=== PATIENT | female | born 1965 | race Caucasian/White ===

== ENCOUNTER 2020-01-16 15:08 | Emergency (ER) | payer OTHER ==
[~2020-01-16] VITALS: Ht 162.6 cm; Wt 58.0 kg
[2020-01-16 15:10] VITALS: BP 120/66
--- NOTE | 2020-01-16 15:50 | EKG ---
[address] [address] Test Date: 2020-01-16 Test Time: 15:17:20 Pat Name: KERRY RING Department: Room: Gender: F [employer]: JONATHAN : 1965 Requested By: NATALIIA LINDA Order Number: [id number] Reading MD: Measurements Intervals [place] Rate: 55 P: 54 VA: 144 QRS: 75 QRSD: 88 T: 48 QT: 418 QTc: 402 Interpretive Statements SINUS RHYTHM NORMAL ECG RI6.02 No previous ECG available for comparison
--- NOTE | 2020-01-16 16:00 | RAD ---
INDICATION: Reason: chest tightness, PUI / Spl. Instructions: / History: COMPARISON: None. FINDINGS: Single view of chest obtained. Cardiac silhouette is unremarkable. No definite focal airspace consolidation. IMPRESSION: * No focal airspace consolidation. Electronically signed by: Reji Ramos MD (01/16/2020 3:57 PM) [id number]
--- NOTE | 2020-01-16 16:29 | PHYS DOC ---
Past History Past Medical History: Other Additional Past Medical Histor: celiac disease Past Surgical History: Hysterectomy Smoking: Non-smoker Alcohol Use: None Drug Use: None General Adult EDM: Chief Complaint: MULTIPLE COMPLAINTS HPI: HPI: Patient is a 54-year-old female who presents to the emergency department with complaints of chest tightness, fatigue, sore throat, headache, and body aches that began yesterday. Patient denies any fever, cough, shortness of breath, nausea, vomiting, diarrhea, or abdominal pain. She denies any known COVID-19 exposure, however patient states she was out and about in the community recently. She denies any chest pain or palpitations. She currently rates her pain a 5 out of 10 on the pain scale describes it as generalized body aches. She denies any alleviating or exacerbating factors. Review of Systems: Review of Systems: Complete ROS is negative unless otherwise noted in HPI. Allergies: Allergies: Allergies Coded Allergies Type Severity Reaction Last Updated Verified Sulfa (Sulfonamide Antibiotics) Allergy Unknown 01/16/20 Yes gluten Allergy Unknown 01/16/20 Yes Physical Exam: PE: See Above Constitutional: Well developed, well nourished, no acute distress, non-toxic appearance. [] HENT: Normocephalic, atraumatic, bilateral external ears normal, nose normal. [] Eyes: PERRLA, EOMI, conjunctiva normal, no discharge. [] Neck: Normal range of motion, no stridor. [] Cardiovascular:Heart rate regular rhythm Lungs & Thorax: Respirations even and unlabored, no retractions, no respiratory distress, speaking full sentences Skin: Warm, dry, no erythema, no rash. [] Extremities: No cyanosis, ROM intact, no edema. [] Neurologic: Alert and oriented X 3, no focal deficits noted. [] Psychologic: Affect normal, judgement normal, mood normal. [] Current Patient Data: Vital Signs: Vital Signs Date Time Temp Pulse Resp B/P (MAP) Pulse Ox O2 Delivery O2 Flow Rate FiO2 01/16/20 15:08 98.3 56 16 120/66 (84) 99 Room Air EKG: EK-sinus bradycardia, rate of 55, otherwise normal ECG, no STEMI, read by Dr. Chatterjee Radiology/Procedures: Radiology/Procedures: PROCEDURE: CHEST AP ONLY INDICATION: Reason: chest tightness, PUI / Spl. Instructions: / History: COMPARISON: None. FINDINGS: Single view of chest obtained. Cardiac silhouette is unremarkable. No definite focal airspace consolidation. IMPRESSION: * No focal airspace consolidation. [] Heart Score: Risk Factors: Risk Factors: DM, Current or recent (<one month) smoker, HTN, HLP, family history of CAD, obesity. Risk Scores: Score 0 - 3: 2.5% MACE over next 6 weeks - Discharge Home Score 4 - 6: 20.3% MACE over next 6 weeks - Admit for Clinical Observation Score 7 - 10: 72.7% MACE over next 6 weeks - Early Invasive Strategies Course & Med Decision Making: Course & Med Decision Making Pertinent Labs and Imaging studies reviewed. (See chart for details) 54-year-old female presents emergency department with complaints of chest tightness, body aches, sore throat, fatigue, and a dull headache. Rapid flu test is negative. COVID-19 test is pending. Patient was afebrile in the emergency department. Vital signs are stable. Chest x-ray was unremarkable. I advised patient of the likely diagnosis of COVID-19 and provided her with quarantine instructions. Encouraged patient to drink clear fluids, eat healthy, and take a multivitamin daily. Instructed her to return to the ER if she develops a fever that does not respond to antipyretics or her shortness of breath becomes worse. Patient verbalized an understanding of home care, medications, follow-up, and return to ED instructions and was in agreement with the plan of care. [] [place] Disclaimer: Zeny Disclaimer: This electronic medical record was generated, in whole or in part, using a voice recognition dictation system. Departure Departure: Impression: Primary Impression: Person under investigation for COVID-19 Disposition: 01 DC HOME SELF CARE/HOMELESS Condition: STABLE Referrals: PCP,UNKNOWN (PCP) Patient Instructions: Upper Respiratory Infection, Adult, [id number] Additional Instructions: Your flu test today is negative. Your Covid 19 test is pending. Please follow the following quarantine instructions: You have been tested for or diagnosed with COVID-19. It is an infection caused by a new type of coronavirus. COVID-19 will cause cold-like or mild flu symptoms in most. It can cause more severe symptoms like problems breathing in some. There is no treatment for COVID-19. The body will clear the infection over time. Self-care will help to ease discomfort. Steps to Take: Self-Care Rest as needed. Healthy habits may help you feel better. Steps include: Choose healthy foods including fruits and vegetables. Drink water throughout the day. Get plenty of sleep each night. If you smoke, try to quit. It may ease breathing. Avoid alcohol. Keep Others Healthy The virus can spread to others. Droplets are released every time you sneeze or cough. The droplets can get into the mouth, nose, or eyes of people near you and lead to infection. To lower the chances of spreading COVID-19 to others: Stay at home until your doctor has said it is safe to leave. If you tested positive this will mean staying isolated until both of the following are true: At least 7 days have passed since the start of illness. You are free of fever for at least 72 hours without the use of medicine. During this time: - Avoid public areas, events, or transportation. Do not return to work or school until your doctor has said it is safe to do so. - Call ahead if you need to go to a medical center. Let them know you may have COVID-19. It will help them guide you where to go. They may also ask you to wear a facemask when you come to the office. - If you call for emergency medical services, let them know you may have COVID- 19. While at home: - Try to avoid close contact with others. Stay about 6 feet away. - If possible, spend most of your time in a separate room from others. - Use a face mask if you will be in close contact with others such as sharing a room or vehicle. - Have someone wipe down common surfaces in the home. Use household chiropractic practice manager every day on areas like doorknobs, counters, or sinks. - Cough or sneeze into a tissue. Throw the tissue away right after use. If a tissue is not available, cough or sneeze into your elbow. - Wash your hands often. Wash them after sneezing or coughing. Use soap and water and wash for at least 20 seconds. Alcohol based hand ribbon cleaner can be used if soap and water is not available. - Do not prepare food for others. Avoid sharing personal items like forks, spoons, or toothbrushes. - Avoid close contact with pets while you are sick. There is no evidence of the virus passing to pets. This is a safety step until more is known about this virus. Isolation can be frustrating. Social interaction can help. Keep in touch with friends and family through phone and tech options. You can still interact with others in your home, just keep a safe distance of about 6 feet. Follow-up: Your doctors office will check in with you to see if there are any changes in your health. You may be asked to keep track of symptoms to share with them. They will also let you know when you are clear to be in public again. Problems to Look Out For: Contact your doctor if your recovery is not going as you expect. Get emergency care if you have problems such as: - Trouble breathing - Nonstop chest pain or pressure - Changes in awareness, confusion, or problems waking - Lips or face have bluish color - Worsening of symptoms If you think you have an emergency, call for emergency medical services right away. As taken from [facility] NATALIIA LINDA APRN Jan 16, 2020 16:29
[2020-01-16 17:22] LABS: INFLUENZA A PATIENT NEGATIVE (NEGATIVE); INFLUENZA B PATIENT NEGATIVE (NEGATIVE)
== END 2020-01-16 17:55 | disposition home or self-care (01) ==
LOC: ER 15:08
DX: R07.89 Other chest pain (principal); J02.9 Acute pharyngitis, unspecified; R51.9 Headache, unspecified; Z20.828 Contact with and (suspected) exposure to other viral communicable diseases; Z88.2 Allergy status to sulfonamides; Z88.8 Allergy status to other drugs, medicaments and biological substances
CPT/HCPCS: 71045; 87804; 93005; 99285; C9803; U0003

== ENCOUNTER 2020-11-01 10:17 | Emergency (ER) | payer OTHER ==
[~2020-11-01] VITALS: Ht 167.6 cm; Wt 61.0 kg
[2020-11-01] MEDS ORDERED: ONDANSETRON PF 4 MG/2 ML VIAL. IVP ONE (10:45)
[2020-11-01] MEDS ORDERED: IV NORMAL SALINE 1,000ML 1,000 ML IV ONE (10:45)
[2020-11-01] MEDS ORDERED: IOHEXOL 300 MG/ML 75 ML VIAL. IV ONE (10:45)
--- NOTE | 2020-11-01 10:45 | PHYS DOC ---
Past History Past Medical History: Other Additional Past Medical Histor: celiac disease Past Surgical History: , Hysterectomy, Other Additional Past Surgical Histo: back surgery x 3 Smoking: Non-smoker Alcohol Use: None Drug Use: None General Adult EDM: Chief Complaint: ABDOMINAL PAIN HPI: HPI: Patient is a 54-year-old female being seen in the ER for left lower quadrant pain that radiates to her left flank. She rates pain 5 out of 10. She has been taking Motrin at home without relief. She is also reporting nausea, dysuria and a strong odor to her urine. She denies any vomiting, diarrhea, fevers, blood in her stools, blood in her urine, alcohol use. Patient has a history of diverticulitis and states that this feels similar. Patient has a history of hysterectomy. Patient is in no acute distress and her vital signs are stable. Review of Systems: Review of Systems: 14 body systems of the review of systems have been reviewed. See HPI for pertinent positive and negative responses, otherwise all other systems are negative, nonpertinent or noncontributory Allergies: Allergies: Allergies Coded Allergies Type Severity Reaction Last Updated Verified Sulfa (Sulfonamide Antibiotics) Allergy Unknown 11/01/20 Yes gluten Allergy Unknown 11/01/20 Yes Physical Exam: PE: Constitutional: Well developed, well nourished, no acute distress, non-toxic appearance. [] HENT: Normocephalic, atraumatic, bilateral external ears normal, oropharynx moist, no oral exudates, nose normal. [] Eyes: PERRL, EOMI, conjunctiva normal, no discharge. [] Neck: Normal range of motion, no stridor Cardiovascular:Heart rate regular rhythm, no murmur [] Lungs & Thorax: Bilateral breath sounds clear to auscultation [] Abdomen: Bowel sounds normal, soft, left lower quadrant pain with palpation, no rebound tenderness, no masses, no pulsatile masses, negative Duckworth sign, negative Rovsing sign. [] Skin: Warm, dry, no erythema, no rash. [] Back: No tenderness, no CVA tenderness. [] Extremities: No tenderness, no cyanosis, no clubbing, ROM intact, no edema. [] Neurologic: Alert and oriented X 3, normal motor function, normal sensory function, no focal deficits noted. [] Psychologic: Affect normal, judgement normal, mood normal. [] Current Patient Data: Labs: Laboratory Tests Test 11/01/20 10:50 11/01/20 10:58 Urine Collection Type Unknown Urine Color Yellow Urine Clarity Hazy Urine pH 6.5 Urine Specific [place] 1.015 Urine Protein Neg Urine Glucose (UA) Neg mg/dL Urine Ketones (Stick) Neg mg/dL Urine Blood Neg Urine Nitrite Neg Urine Bilirubin Neg Urine Urobilinogen Dipstick 0.2 mg/dL Urine Leukocyte Esterase Small Urine RBC 1-2 /HPF Urine WBC 20-40 /HPF Urine Squamous Epithelial Cells Many /LPF Urine Bacteria Mod /HPF White Blood Count 6.1 x10^3/uL Red Blood Count 4.78 x10^6/uL Hemoglobin 14.5 g/dL Hematocrit 43.8 % Mean Corpuscular Volume 92 fL Mean Corpuscular Hemoglobin 30 pg Mean Corpuscular Hemoglobin Concent 33 g/dL Red Cell Distribution Width 12.7 % Platelet Count 224 x10^3/uL Neutrophils (%) (Auto) 60 % Lymphocytes (%) (Auto) 31 % Monocytes (%) (Auto) 7 % Eosinophils (%) (Auto) 2 % Basophils (%) (Auto) 1 % Neutrophils # (Auto) 3.7 x10^3uL Lymphocytes # (Auto) 1.9 x10^3/uL Monocytes # (Auto) 0.4 x10^3/uL Eosinophils # (Auto) 0.1 x10^3/uL Basophils # (Auto) 0.0 x10^3/uL Sodium Level 142 mmol/L Potassium Level 4.0 mmol/L Chloride Level 103 mmol/L Carbon Dioxide Level 34 mmol/L Anion Gap 5 Blood Urea Nitrogen 16 mg/dL Creatinine 0.7 mg/dL Estimated GFR (Cockcroft-Gault) 87.5 BUN/Creatinine Ratio 23 Glucose Level 72 mg/dL Calcium Level 9.4 mg/dL Total Bilirubin 0.4 mg/dL Aspartate Amino Transf (AST/SGOT) 24 U/L Alanine Aminotransferase (ALT/SGPT) 31 U/L Alkaline Phosphatase 78 U/L Total Protein 7.1 g/dL Albumin 3.8 g/dL Albumin/Globulin Ratio 1.2 Lipase 110 U/L Current Medications Medications (Trade) Dose Ordered Sig/Jensen Route PRN Reason Start Time Stop Time Status Last Admin Dose Admin Sodium Chloride 1,000 ml @ 1,000 mls/hr 1X ONCE IV 11/01/20 10:45 11/01/20 11:44 DC 11/01/20 10:58 Ondansetron HCl (Zofran) 4 mg 1X ONCE IVP 11/01/20 10:45 11/01/20 10:46 DC 11/01/20 10:59 Iohexol (Omnipaque 300 Mg/ml) 75 ml 1X ONCE IV 11/01/20 10:45 11/01/20 10:46 DC 11/01/20 11:04 Info (Do NOT chart on this entry -- for MONITORING) 1 each PRN DAILY PRN MC SEE COMMENTS 11/01/20 11:00 11/03/20 10:59 Vital Signs: Vital Signs Date Time Temp Pulse Resp B/P (MAP) Pulse Ox O2 Delivery O2 Flow Rate FiO2 11/01/20 10:34 97.8 63 18 104/54 (71) 98 Room Air EKG: EKG: [] Radiology/Procedures: Radiology/Procedures: PROCEDURE: CT ABD PELV W/ IV CONTRST ONLY EXAMINATION: CT abdomen and pelvis with IV contrast. INDICATION:54 years, Female, left lower quadrant abdominal pain.. TECHNIQUE: Axial CT images of the abdomen and pelvis were obtained. Coronal and sagittal reformatted performed. COMPARISON: None. Exposure: One or more of the following individualized dose reduction techniques were utilized for this examination: 1. Automated exposure control 2. Adjustment of the mA and/or kV according to patient size 3. Use of iterative reconstruction technique. FINDINGS: LOWER CHEST: Subsegmental atelectasis versus scarring in the lingula. ABDOMEN/PELVIS: Normal size and morphology of the liver with homogeneous enhancement. Subcentimeter hypodensity in the posterior right hepatic lobe, too small to characterize, statistically favors benign etiology such as cyst. Cholecystectomy. Central intra and extrahepatic biliary ductal dilation with smooth tapering distally, likely secondary to postcholecystectomy status. Unremarkable spleen and pancreas. No adrenal nodule. Normal symmetric enhancement of the kidneys with no hydronephrosis. Subcentimeter hypodensity in the interpolar right kidney, too small to characterize. Bowel obstruction or wall thickening. Sigmoid diverticulosis without diverticulitis. Normal appendix. Normal caliber abdominal aorta. Mesenteric arteries and portal vein are patent. No ascites or pneumoperitoneum. No lymphadenopathy in the abdomen or pelvis by size criteria. Diffuse urinary bladder wall thickening, may relate to underdistention. Uterus is not visualized. No suspicious pelvic masses. 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 MUSCULOSKELETAL: Anterior hardware fusion L4, L5 and S1. Disc spacer at the L4-5 and L5-S1. Surgical clips in the left lower quadrant. IMPRESSION: 1. No acute abnormality in the abdomen or pelvis. 2. Sigmoid diverticulosis without acute diverticulitis 3. 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 4. Mild urinary bladder wall thickening, may relate to underdistended lumen. Consider correlation with urinalysis. Electronically signed by: Shelley Manzano MD (11/01/2020 11:32 AM) [id number] DICTATED AND SIGNED BY: SHELLEY MANZANO MD DATE: 11/01/20 1119 CC: NETTIE LITTLE MD; NICOLE JIN APRN; PCP,UNKNOWN ~MTH0 0 [] Heart Score: C/O Chest Pain: No Risk Factors: Risk Factors: DM, Current or recent (<one month) smoker, HTN, HLP, family history of CAD, obesity. Risk Scores: Score 0 - 3: 2.5% MACE over next 6 weeks - Discharge Home Score 4 - 6: 20.3% MACE over next 6 weeks - Admit for Clinical Observation Score 7 - 10: 72.7% MACE over next 6 weeks - Early Invasive Strategies Course & Med Decision Making: Course & Med Decision Making Pertinent Labs and Imaging studies reviewed. (See chart for details) [] Patient is a 54-year-old female being seen in the ER for left lower quadrant pain that radiates to her left flank with nausea, dysuria and a strong odor to her urine. Patient has a history of diverticulitis. Work-up in the ER consisted of blood work, urinalysis, CT imaging of abdomen and pelvis. Patient treated with IV fluids and nausea medication. CT scan of abdomen and pelvis showed diverticulosis without diverticulitis and bladder thickening consistent with acute cystitis. CBC and CMP unremarkable. UA was positive for urinary tract infection. Patient will be discharged home with an antibiotic and Pyridium. Patient advised to follow-up with her primary care provider. I discussed with patient all findings and diagnostic testing as well as the need to follow-up with PCP for further evaluation and treatment or return to the ER if any new or worsening symptoms. Strict return precautions were also discussed at length. Patient voiced understanding and agreement with the plan. Patient is hemodynamically stable at the time of disposition. pt requesting diflucan for preventative yeast infection due to abx. Zeny Disclaimer: Zeny Disclaimer: This electronic medical record was generated, in whole or in part, using a voice recognition dictation system. Departure Departure: Impression: Primary Impression: Acute cystitis Qualified Codes: N30.00 - Acute cystitis without hematuria Additional Impression: Diverticulosis Disposition: HOME / SELF CARE / HOMELESS Condition: GOOD Referrals: PCP,UNKNOWN (PCP) Patient Instructions: Diverticulosis, Urinary Tract Infection Additional Instructions: You were seen in the ER today for left lower quadrant pain and back pain. CT scan of your abdomen and pelvis showed diverticulosis but no diverticulitis, it also showed bladder wall thickening consistent with cystitis. Please see attached information on diverticulosis. Avoid eating foods that may contribute to diverticulosis like seeds, nuts. Your urinalysis was positive for urinary tract infection. You will be discharged home with an antibiotic and Pyridium. Please take the antibiotic as directed. Pyridium will help you with your bladder spasming pains. Follow-up with your primary care provider regarding your ER visit on Wednesday. Increase your fluids. Avoid bladder irritants like caffeine, alcohol or sugary beverages. If you develop worsening of your pain, intractable nausea or vomiting, high fevers refractory to treatment, blood in your stools or vomit please return to the ER. EMERGENCY DEPARTMENT GENERAL DISCHARGE INSTRUCTIONS Thank you for coming to [facility] (ED) today and trusting us with you care. We trust that you had a positivie experience in our Emergency Department. If you wish to speak to the department management, you may call the director at [phone]. YOUR FOLLOW UP INSTRUCTIONS ARE FOLLOWS: 1. Do you have a private Doctor? If you do not have a private doctor, please ask for a resource list of physicians or clinics that may be able to assist you with follow up care. 2. The Emergency Physician has interpreted your x-rays. The X-Ray specialist will also review them. If there is a change in the findings, you will be notified in 48 hours when at all possible. 3. A lab test or culture has been done, your results will be reviewed and you will be notified if you need a change in treatment. ADDITIONAL INSTRUCTIONS AND INFORMATION: 1. Your care today has been supervised by a physician who is specially trained in emergency care. Many problems require more than one evaluation for a complete diagnosis and treatment. We recommend that you schedule your follow up appointment as recommended to ensure complete treatment of you illness or injury. If you are unable to obtain follow up care and continue to have a problem, or if your condition worsens, we recommend that you return to the ED. 2. We are not able to safely determine your condition over the phone nor are we able to give sound medical advice over the phone. For these safety reasons, if you call for medical advice we will ask you to come to the ED for further evaluation. 3. If you have any questions regarding these discharge instructions please call the ED at [phone]. SAFETY INFORMATION: In the interest of safety, wellness, and injury prevention; we encourage you to wear your sealbelt, if you smoke; quite smoking, and we encourage family to use a protective helmet for bicycling and other sporting events that present an increased risk for head injury. IF YOUR SYMPTOMS WORSEN OR NEW SYMPTOMS DEVELOP, OR YOU HAVE CONCERNS ABOUT YOUR CONDITION; OR IF YOUR CONDITION WORSENS WHILE YOU ARE WAITING FOR YOUR FOLLOW UP APPOINTMENT; EITHER CONTACT YOUR PRIMARY CARE DOCTOR, THE PHYSICIAN WHOSE NAME AND NUMBER YOU WERE GIVEN, OR RETURN TO THE ED IMMEDIATELY. Scripts Fluconazole (DIFLUCAN) 150 Mg Tablet 1 TAB PO ONCE for yeast infection for 1 Day, #1 TAB 0 Refills Prov: NICOLE JIN APRN 11/01/20 Phenazopyridine Hcl (PYRIDIUM) 200 Mg Tablet 1 TAB PO TID for urinary discomfort for 3 Days, #9 TAB 0 Refills Prov: NICOLE JIN APRN 11/01/20 Cephalexin (CEPHALEXIN) 500 Mg Tablet 1 TAB PO BID for UTI for 7 Days, #14 TAB 0 Refills Prov: NICOLE JIN APRN 11/01/20 NICOLE JIN APRN Nov 01, 2020 10:45
[2020-11-01] MEDS ORDERED: CONTRAST GIVEN. MC PRN (11:00)
[2020-11-01 11:21] LABS: BASO % 1 % (0-3); EOS # 0.1 x10^3/uL (0.0-0.7); EOS % 2 % (0-3); HEMATOCRIT 43.8 % (36.0-47.0); HEMOGLOBIN 14.5 g/dL (12.0-15.5); LYMPH # 1.9 x10^3/uL (1.0-4.8); LYMPH % 31 % (24-48); MEAN CORPUSCULAR HEMOGLOBIN 30 pg (25-35); MEAN CORPUSCULAR HGB CONC 33 g/dL (31-37); MEAN CORPUSCULAR VOLUME 92 fL (79-100); MONO # 0.4 x10^3/uL (0.0-1.1); MONO % 7 % (0-9); NEUT # 3.7 x10^3uL (1.8-7.7); NEUT % 60 % (31-73); PLATELET COUNT 224 x10^3/uL (140-400); RED BLOOD COUNT 4.78 x10^6/uL (3.50-5.40); RED CELL DISTRIBUTION WIDTH 12.7 % (11.5-14.5); WHITE BLOOD COUNT 6.1 x10^3/uL (4.0-11.0)
[2020-11-01 11:25] LABS: CALCIUM 9.4 mg/dL (8.5-10.1); CREATININE 0.7 mg/dL (0.6-1.0); GFR 87.5
[2020-11-01 11:30] LABS: ALBUMIN 3.8 g/dL (3.4-5.0); ALBUMIN/GLOBULIN RATIO 1.2 (1.0-1.7); TOTAL BILIRUBIN 0.4 mg/dL (0.2-1.0); TOTAL PROTEIN 7.1 g/dL (6.4-8.2)
[2020-11-01 11:33] LABS: BACTERIA,URINE MOD /HPF (0-FEW); BILIRUBIN,URINE NEG (NEG); CLARITY,URINE HAZY; COLOR,URINE YELLOW; GLUCOSE,URINE NEG (NEG); NITRITE,URINE NEG (NEG); SQUAMOUS EPITHELIAL CELL,UR MANY /LPF; UROBILINOGEN,URINE 0.2 mg/dL (0.2 mg/dL); WBC,URINE 20-40 /HPF (0-4)
--- NOTE | 2020-11-01 11:35 | RAD ---
EXAMINATION: CT abdomen and pelvis with IV contrast. INDICATION:54 years, Female, left lower quadrant abdominal pain.. TECHNIQUE: Axial CT images of the abdomen and pelvis were obtained. Coronal and sagittal reformatted performed. COMPARISON: None. Exposure: One or more of the following individualized dose reduction techniques were utilized for thi s examination: 1. Automated exposure control 2. Adjustment of the mA and/or kV according to patient size 3. Use of iterative reconstruction technique. FINDINGS: LOWER CHEST: Subsegmental atelectasis versus scarring in the lingula. ABDOMEN/PELVIS: Normal size and morphology of the liver with homogeneous enhancement. Subcentimeter hypodensity in th e posterior right hepatic lobe, too small to characterize, statistically favors benign etiology such as cyst. Cholecystectomy. Central intra and extrahepatic biliary ductal dilation with smooth tapering distally, likely secondary to postcholecystectomy status. Unremarkable spleen and pancreas. No adren al nodule. Normal symmetric enhancement of the kidneys with no hydronephrosis. Subcentimeter hypodens ity in the interpolar right kidney, too small to characterize. Bowel obstruction or wall thickening. Sigmoid diverticulosis without diverticulitis. Normal appendix. Normal caliber abdominal aorta. Mesenteric arteries and portal vein are patent. No ascites or pneumo peritoneum. No lymphadenopathy in the abdomen or pelvis by size criteria. Diffuse urinary bladder wal l thickening, may relate to underdistention. Uterus is not visualized. No suspicious pelvic masses. D istended left gonadal vein with left pelvic sidewall varices. MUSCULOSKELETAL: Anterior hardware fusion L4, L5 and S1. Disc spacer at the L4-5 and L5-S1. Surgical clips in the left lower quadrant. IMPRESSION: 1. No acute abnormality in the abdomen or pelvis. 2. Sigmoid diverticulosis without acute diverticulitis 3. 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 4. Mild urinary bladder wall thickening, may relate to underdistended lumen. Consider correlation wit h urinalysis. Electronically signed by: Trini Manzano MD (11/01/2020 11:32 AM) [id number]
[2020-11-01] MEDS ORDERED: CEPH500T PO (11:54)
[2020-11-01] MEDS ORDERED: PHEN-318 PO (11:56)
[2020-11-01] MEDS ORDERED: FLUC150T PO (12:18)
[2020-11-01 12:25] VITALS: BP 103/54
== END 2020-11-01 12:46 | disposition home or self-care (01) ==
LOC: ER 10:23
DX: N30.00 Acute cystitis without hematuria (principal); K57.30 Diverticulosis of large intestine without perforation or abscess without bleeding; Z90.710 Acquired absence of both cervix and uterus; Z98.890 Other specified postprocedural states; Z59.0 Homelessness; Z88.2 Allergy status to sulfonamides; Z88.8 Allergy status to other drugs, medicaments and biological substances
CPT/HCPCS: 36415; 74177; 80053; 81001; 83690; 85025; 87077; 87086; 87186; 96361; 96374; 99285; J2405; J7030; Q9967

== ENCOUNTER 2020-12-31 11:11 | Emergency (ER) | payer OTHER ==
[~2020-12-31] VITALS: Ht 167.6 cm; Wt 69.0 kg
[~2020-12-31 11:11] MED LIST: CEPH500T PO; FLUC150T PO; PHEN-318 PO
[2020-12-31] MEDS ORDERED: IV NORMAL SALINE 1,000ML 1,000 ML IV ONE (12:15)
[2020-12-31] MEDS ORDERED: ASPIRIN CHEWABLE 81 MG TABLET. PO ONE (12:15)
[2020-12-31] MEDS ORDERED: KETOROLAC 30 MG/ML VIAL. IVP ONE (12:15)
--- NOTE | 2020-12-31 12:19 | EKG ---
[address] [address] Test Date: 2020-12-31 Test Time: 11:37:37 Pat Name: KERRY RING Department: Room: Gender: F Manufacturing Clerk: GEOR[place]NA : 1965 Requested By: ISAIAS FERRO Order Number: [id number] Reading MD: Eugene Alvarenga Measurements Intervals [place] Rate: 56 P: 51 [place]: 140 QRS: 81 QRSD: 84 T: 46 QT: 416 QTc: 404 Interpretive Statements SINUS RHYTHM NORMAL ECG RI6.02 Compared to ECG 01/16/2020 15:17:20 No significant changes Electronically Signed On 12-31-2020 14:01:45 BAND HEAD SAW OPERATOR by Eugene Alvarenga
[2020-12-31] MEDS ORDERED: KETOROLAC 15 MG/ML VIAL. ONE (12:25)
--- NOTE | 2020-12-31 12:41 | RAD ---
Single view of the chest. 12/31/2020 12:33 PM Indication: Reason: Chest tightness / Spl. Instructions: / History: Comparison: Chest radiograph January 16, 2020 Findings: There is no focal consolidation. There is no pleural effusion or pneumothorax. The cardiome diastinal silhouette and pulmonary vasculature are within normal limits. No acute osseous abnormaliti es are seen. Impression: No evidence of acute cardiopulmonary process. Electronically signed by: Alphonse Dangelo MD (12/31/2020 12:39 PM) [id number]
--- NOTE | 2020-12-31 12:44 | RAD ---
CT HEAD WITHOUT CONTRAST 12/31/2020 12:33 PM Indication: Dizziness Comparison: None Procedure: Multidetector CT imaging of the head was performed without the administration of contrast. Findings: There is no evidence of acute intracranial hemorrhage. There is no evidence of acute territ orial infarction. Please note that CT is limited for evaluation of acute ischemia. No mass effect or midline shift is identified . The ventricles and basilar cisterns have an appropriate appearance. No abnormal extra-axial fluid collections are seen. No acute osseous changes are identified. Impression: No evidence of acute intracranial abnormality CT DOSING PQRS STATEMENT: One or more of the following individualized dose reduction techniques were utilized for this examinat ion: 1. Automated exposure control 2. Adjustment of the mA and/or kV according to patient size 3. Use of iterative reconstruction technique Electronically signed by: Alphonse Dangelo MD (12/31/2020 12:42 PM) [id number]
--- NOTE | 2020-12-31 12:47 | PHYS DOC ---
Past History Past Medical History: Other Additional Past Medical Histor: celiac disease (ISAIAS FERRO APRN) Past Surgical History: , Hysterectomy, Other Additional Past Surgical Histo: back surgery x 3 (ISAIAS FERRO APRN) Smoking: Non-smoker Alcohol Use: Occasionally Drug Use: None (ISAIAS FERRO APRN) Adult General Chief Complaint Chief Complaint: CHEST PAIN HPI HPI Patient is a 55-year-old female who reports to the emergency department chief complaint of chest tightness since this morning at approximately 730. Patient also complains of intermittent dizziness over the past several months. Patient reports she has been seen by her primary care physician at the [facility]. Patient reports her dizziness makes her feel as if she is falling to the right, only lasts a few seconds and then resolves. Patient reports a hi story of low blood pressures and low heart rate and associates her dizziness with this. Patient denies recent fever or chills, denies nausea, vomiting, diarrhea, denies shortness of breath chest congestion or nasal congestion. Patient denies visual disturbances. Patient reports being postmenopausal denies syncopal episodes. Denies other physical complaints or physical concerns. (ISAIAS FERRO APRN) Review of Systems Review of Systems 14 body systems of review of systems have been reviewed. See HPI for pertinent positives and negative responses, otherwise all other systems are negative, nonpertinent or noncontributory. Constitutional: Negative except as outlined in HPI above. Skin: Negative except as outlined in HPI above. Eyes: Negative except as outlined in HPI above. HENT: Negative except as outlined in HPI above. Respiratory: Negative except as outlined in HPI above. Cardiovascular: Negative except as outlined in HPI above. GI: Negative except as outlined in HPI above. : Negative except as outlined in HPI above. Musculoskeletal: Negative except as outlined in HPI above. Integument: Negative except as outlined in HPI above. Neurologic: Negative except as outlined in HPI above. Endocrine: Negative except as outlined in HPI above. Lymphatic: Negative except as outlined in HPI above. Psychiatric: Negative except as outlined in HPI above. (ISAIAS FERRO APRN) Current Medications Current Medications Current Medications Medications (Trade) Dose Ordered Sig/Jensen Start Time Stop Time Status Last Admin Dose Admin Aspirin (Aspirin Chewable) 324 mg 1X ONCE 12/31/20 12:15 12/31/20 12:16 12/31/20 12:15 324 MG Ketorolac Tromethamine (Toradol 15mg Vial) 15 mg STK-MED ONCE 12/31/20 12:25 12/31/20 12:26 DC Ketorolac Tromethamine (Toradol 30mg Vial) 30 mg 1X ONCE 12/31/20 12:15 12/31/20 12:16 12/31/20 12:15 30 MG Sodium Chloride 1,000 ml @ 1,000 mls/hr 1X ONCE 12/31/20 12:15 12/31/20 13:14 12/31/20 12:15 1,000 MLS/HR (ISAIAS FERRO APRN) Allergies Allergies Allergies Coded Allergies Type Severity Reaction Last Updated Verified Sulfa (Sulfonamide Antibiotics) Allergy Unknown 11/01/20 Yes gluten Allergy Unknown 11/01/20 Yes (ISAIAS FERRO APRN) Physical Exam Physical Exam Constitutional: Well developed, well nourished, no acute distress, non-toxic appearance. D5-year-old female in no apparent distress. HENT: Normocephalic, atraumatic. Eyes: Conjunctiva normal, no discharge. Neck: Normal range of motion, no stridor. Cardiovascular: No cyanosis appreciated, distal cap refill less than 2 seconds. Heart sounds S1-S2 to auscultation, regular rate and rhythm. Lungs & Thorax: Patient is in no respiratory distress, no audible adventitious lung sounds appreciated. No adventitious lung sounds appreciated per auscultation, clear all lung brown. Pain reproducible to the anterior thorax to palpation. Abdomen: Nontender, no abnormalities noted. Skin: Warm, dry, no erythema, no rash. Back: No tenderness, no deformities. Extremities: No tenderness, no cyanosis, no clubbing, ROM intact, no edema. Neurologic: Alert and oriented X 3, normal motor function, normal sensory function, no focal deficits noted. Psychologic: Affect normal, judgement normal, mood normal. (ISAIAS FERRO APRN) Current Patient Data Vital Signs Vital Signs Date Time Temp Pulse Resp B/P (MAP) Pulse Ox O2 Delivery O2 Flow Rate FiO2 12/31/20 12:17 98.5 56 16 122/66 (84) 96 Room Air (ISAIAS FERRO APRN) EKG EKG EKG performed at 1137 by ED nursing staff shows a normal sinus rhythm without other ectopy, heart rate 56 bpm, SD interval 0.140, QTc interval 0.404, no acute STEMI, no ACS, no acute ischemia appreciated, EKG interpreted by ED attending physician Dr. Xavier. (ISAIAS FERRO APRN) Radiology/Procedures Radiology/Procedures REASON: Dizziness PROCEDURE: CT HEAD WO CONTRAST CT HEAD WITHOUT CONTRAST 12/31/2020 12:33 PM Indication: Dizziness Comparison: None Procedure: Multidetector CT imaging of the head was performed without the administration of contrast. Findings: There is no evidence of acute intracranial hemorrhage. There is no evidence of acute territorial infarction. Please note that CT is limited for evaluation of acute ischemia. No mass effect or midline shift is identified . The ventricles and basilar cisterns have an appropriate appearance. No abnormal extra-axial fluid collections are seen. No acute osseous changes are identified. Impression: No evidence of acute intracranial abnormality CT DOSING PQRS STATEMENT: One or more of the following individualized dose reduction techniques were utilized for this examination: 1. Automated exposure control 2. Adjustment of the mA and/or kV according to patient size 3. Use of iterative reconstruction technique Electronically signed by: Alphonse Dangelo MD (12/31/2020 12:42 PM) [id number] REASON: Chest tightness PROCEDURE: CHEST AP ONLY Single view of the chest. 12/31/2020 12:33 PM Indication: Reason: Chest tightness / Spl. Instructions: / History: Comparison: Chest radiograph January 16, 2020 Findings: There is no focal consolidation. There is no pleural effusion or pneumothorax. The cardiomediastinal silhouette and pulmonary vasculature are wi thin normal limits. No acute osseous abnormalities are seen. Impression: No evidence of acute cardiopulmonary process. Electronically signed by: Alphonse Dangelo MD (12/31/2020 12:39 PM) [id number] (ISAIAS FERRO APRN) Heart Score C/O Chest Pain: Yes HEART Score for Chest Pain: HEART Score for Chest Pain Response (Comments) Value History Slighlty/Non-Suspicious 0 ECG Normal 0 Age >45 - < 65 1 Risk Factors No Risk Factors 0 Troponin < Normal Limit 0 Total 1 Risk Factors: Risk Factors: DM, Current or recent (<one month) smoker, HTN, HLP, family history of CAD, obesity. Risk Scores: Risk Factors: DM, Current or recent (<one month) smoker, HTN, HLP, family history of CAD, obesity. (ISAIAS FERRO APRN) Course & Med Decision Making Course & Med Decision Making Pertinent Labs and Imaging studies reviewed. (See chart for details) 55-year-old female, vital signs reviewed, presents emergency department concerning chest tightness since 730 this morning. Patient also reports history of intermittent dizziness without syncope. Will order CT head without contrast, chest x-ray, cardiac work-up to include EKG, troponin I high-sensitivity, CBC, CMP. Patient EKG unremarkable, cardiac labs nonconcerning, chest x-ray nonconcerning for cardiorespiratory process. Patient was given IV Toradol while labs pending, patient reports relief in pain, no longer has reproducible pain to the anterior thorax, patient reports she did have a slight headache that she did not reveal during examination and reports her headache is been relieved. Patient is currently hemodynamically stable, no apparent distress, nontoxic in appearance, discussed findings with patient, working diagnosis chest wall pain, discussed strict follow-up with primary care for ongoing evaluation of dizziness. Patient is amenable to ED discharge planning. Discussed with the patient all findings and diagnostic testing as well as the need to follow-up with their primary care provider for further evaluation and treatment or return to the ED if any new or worsening symptoms. Strict return precautions were also discussed at length, the patient voiced understanding and agreement with the discharge planning. The patient was nontoxic in appearance, in no apparent distress, and hemodynamically stable at the time of disposition. (ISAIAS FERRO APRN) Course & Med Decision Making I was the Attending physician on the above date of service of this patient. This patient was evaluated, examined, treated, and dispositioned from the emergency department by the mid-level practitioner. Although I was working at the time , no assistance was requested. Electronically signed, Monik Xavier DO (MONIK XAVIER DO) Zeny Disclaimer Zeny Disclaimer This electronic medical record was generated, in whole or in part, using a voice recognition dictation system. (ISAIAS FERRO APRN) Departure Departure: Impression: Primary Impression: Chest wall pain Additional Impression: Dizzy spells Disposition: HOME / SELF CARE / HOMELESS Condition: GOOD Referrals: PCP,UNKNOWN (PCP) Patient Instructions: Chest Pain (Nonspecific), Dizziness Additional Instructions: You were seen today in the emergency department for chest tightness and dizzy spells. The CT scan of your head did not reveal any abnormalities of your brain that would require immediate intervention by specialist. Your chest x-ray and EKG did not show any concerning signs of heart disease or heart problems, your lab work did not reveal any concerning findings that would require hospitalization. As we discussed, please continue to follow-up at the [facility] in hospital for ongoing evaluation and treatment of your intermittent dizzy spells. Return to the emergency department for worsening symptoms or other concerns. Thank you for visiting our Emergency Department. It was a pleasure taking care of you today in the emergency department and we appreciate you trusting us with your care. If any additional problems come up don't hesitate to return to visit us. Please follow up with your primary care provider so they can plan additional care if needed and know about the problem that you had. If symptoms worsen come back to the Emergency Department. Any concerning symptoms that start such as chest pain, shortness of air, weakness or numbness on one side of the body, running high fevers or any other concerning symptoms return to the ER. EMERGENCY DEPARTMENT GENERAL DISCHARGE INSTRUCTIONS Thank you for coming to [facility] (ED) today and trusting us with you care. We trust that you had a positivie experience in our Emergency Department. If you wish to speak to the department management, you may call the director at [phone]. YOUR FOLLOW UP INSTRUCTIONS ARE FOLLOWS: 1. Do you have a private Doctor? If you do not have a private doctor, please ask for a resource list of physicians or clinics that may be able to assist you with follow up care. 2. The Emergency Physician has interpreted your x-rays. The X-Ray specialist will also review them. If there is a change in the findings, you will be notified in 48 hours when at all possible. 3. A lab test or culture has been done, your results will be reviewed and you will be notified if you need a change in treatment. ADDITIONAL INSTRUCTIONS AND INFORMATION: 1. Your care today has been supervised by a physician who is specially trained in emergency care. Many problems require more than one evaluation for a complete diagnosis and treatment. We recommend that you schedule your follow up appointment as recommended to ensure complete treatment of you illness or injury. If you are unable to obtain follow up care and continue to have a problem, or if your condition worsens, we recommend that you return to the ED. 2. We are not able to safely determine your condition over the phone nor are we able to give sound medical advice over the phone. For these safety reasons, if you call for medical advice we will ask you to come to the ED for further evaluation. 3. If you have any questions regarding these discharge instructions please call the ED at [phone]. SAFETY INFORMATION: In the interest of safety, wellness, and injury prevention; we encourage you to wear your sealbelt, if you smoke; quite smoking, and we encourage family to use a protective helmet for bicycling and other sporting events that present an increased risk for head injury. IF YOUR SYMPTOMS WORSEN OR NEW SYMPTOMS DEVELOP, OR YOU HAVE CONCERNS ABOUT YOUR CONDITION; OR IF YOUR CONDITION WORSENS WHILE YOU ARE WAITING FOR YOUR FOLLOW UP APPOINTMENT; EITHER CONTACT YOUR PRIMARY CARE DOCTOR, THE PHYSICIAN WHOSE NAME AND NUMBER YOU WERE GIVEN, OR RETURN TO THE ED IMMEDIATELY. Problem Qualifiers ISAIAS FERRO APRN Dec 31, 2020 12:47 MONIK XAVIER DO Jan 01, 2021 07:04
[2020-12-31 12:53] LABS: BASO % 1 % (0-3); EOS # 0.1 x10^3/uL (0.0-0.7); EOS % 1 % (0-3); HEMATOCRIT 41.1 % (36.0-47.0); HEMOGLOBIN 13.7 g/dL (12.0-15.5); LYMPH # 1.9 x10^3/uL (1.0-4.8); LYMPH % 29 % (24-48); MEAN CORPUSCULAR HEMOGLOBIN 30 pg (25-35); MEAN CORPUSCULAR HGB CONC 33 g/dL (31-37); MEAN CORPUSCULAR VOLUME 91 fL (79-100); MONO # 0.4 x10^3/uL (0.0-1.1); MONO % 6 % (0-9); NEUT # 4.1 x10^3uL (1.8-7.7); NEUT % 63 % (31-73); PLATELET COUNT 220 x10^3/uL (140-400); RED BLOOD COUNT 4.53 x10^6/uL (3.50-5.40); RED CELL DISTRIBUTION WIDTH 12.6 % (11.5-14.5); WHITE BLOOD COUNT 6.5 x10^3/uL (4.0-11.0)
[2020-12-31 12:55] LABS: CALCIUM 9.4 mg/dL (8.5-10.1); CREATININE 0.8 mg/dL (0.6-1.0); GFR 74.7; POTASSIUM 4.1 mmol/L (3.5-5.1)
[2020-12-31 13:11] LABS: ALBUMIN 3.7 g/dL (3.4-5.0); ALBUMIN/GLOBULIN RATIO 1.1 (1.0-1.7); TOTAL BILIRUBIN 0.3 mg/dL (0.2-1.0)
[2020-12-31 13:23] LABS: BACTERIA,URINE MANY /HPF (0-FEW); BILIRUBIN,URINE NEG (NEG); CLARITY,URINE HAZY; COLOR,URINE YELLOW; GLUCOSE,URINE NEG (NEG); NITRITE,URINE NEG (NEG); RBC,URINE OCC /HPF (0-2); SQUAMOUS EPITHELIAL CELL,UR MANY /LPF; UROBILINOGEN,URINE 0.2 mg/dL (0.2 mg/dL)
[2020-12-31 13:24] VITALS: BP 113/61
== END 2020-12-31 14:06 | disposition home or self-care (01) ==
LOC: ER 11:11
DX: R07.89 Other chest pain (principal); R42 Dizziness and giddiness; Z88.2 Allergy status to sulfonamides; Z91.011 Allergy to milk products
CPT/HCPCS: 36415; 70450; 71045; 80053; 81001; 82553; 84484; 85025; 87086; 93005; 96361; 96374; 99285; J1885; J7030; 87077; 87186

== ENCOUNTER 2021-06-04 11:45 | Emergency (ER) | payer OTHER ==
[~2021-06-04] VITALS: Ht 167.6 cm; Wt 69.0 kg
[2021-06-04] MEDS: ONDANSETRON PF 4 MG/2 ML VIAL. IVP ONE (12:17)
[2021-06-04] MEDS: IV NORMAL SALINE 1,000ML 1,000 ML IV ONE (12:17)
[2021-06-04] MEDS: KETOROLAC 15 MG/ML VIAL. IVP ONE (12:17)
[2021-06-04] MEDS: IOHEXOL 300 MG/ML 75 ML VIAL. IV ONE (12:22)
--- NOTE | 2021-06-04 12:33 | PHYS DOC ---
Past History Past Medical History: Other Additional Past Medical Histor: celiac disease Past Surgical History: , Hysterectomy, Other Additional Past Surgical Histo: back surgery x 3 Smoking: Non-smoker Alcohol Use: Occasionally Drug Use: None General Adult EDM: Chief Complaint: ABDOMINAL PAIN HPI: HPI: Patient is a 55-year-old female with abdominal pain. Symptoms have been present for the last day or so. Pain is worse in the suprapubic area but does radiate to the right lower quadrant. Patient still has her appendix. She has had diverticulitis in the past with left-sided pain that was similar in quality to the pain she is experiencing now. She has been nauseated but has not thrown up. No fever. No diarrhea or dysuria. Pain has been waxing and waning but overall is getting worse. Review of Systems: Review of Systems: Constitutional: Denies fever Eyes: Denies change in visual acuity or eye pain HENT: Denies sore throat Respiratory: Denies shortness of breath Cardiovascular: Denies chest pain GI: Reports abd pain : Denies dysuria Musculoskeletal: Denies back or extremity injury Integument: Denies rash or skin lesions Neurologic: Denies headache, focal weakness or sensory changes All other systems were reviewed and found to be within normal limits, except as documented in this note. Current Medications: Current Meds: Current Medications Medications (Trade) Dose Ordered Sig/Jensen Start Time Stop Time Status Last Admin Dose Admin Iohexol (Omnipaque 300 Mg/ml) 75 ml 1X ONCE 06/04/21 12:15 06/04/21 12:16 DC 06/04/21 12:22 75 ML Ketorolac Tromethamine (Toradol 15mg Vial) 15 mg 1X ONCE 06/04/21 12:15 06/04/21 12:16 DC 06/04/21 12:17 15 MG Ondansetron HCl (Zofran) 4 mg 1X ONCE 06/04/21 12:15 06/04/21 12:16 DC 06/04/21 12:17 4 MG Sodium Chloride 1,000 ml @ 1,000 mls/hr 1X ONCE 06/04/21 12:15 06/04/21 13:14 06/04/21 12:17 1,000 MLS/HR Allergies: Allergies: Allergies Coded Allergies Type Severity Reaction Last Updated Verified Sulfa (Sulfonamide Antibiotics) Allergy Unknown 11/01/20 Yes gluten Allergy Unknown 11/01/20 Yes Physical Exam: PE: Constitutional: Well developed, well nourished, no acute distress, non-toxic appearance. HENT: Normocephalic, atraumatic, bilateral external ears normal, mucosa moist, nose normal. Eyes: EOMI, conjunctiva normal, no discharge. Neck: Normal range of motion, supple, no stridor, no meningeal signs. Cardiovascular: Regular rate and rhythm Lungs & Thorax: Bilateral breath sounds clear to auscultation Abdomen: Soft, patient does have right lower quadrant and suprapubic tenderness present. Skin: Warm, dry, no erythema, no rash. Extremities: No tenderness, no cyanosis, no clubbing, ROM intact, no edema. Neurologic: Alert and oriented, normal motor function, normal sensory function, no focal deficits noted. Psychologic: Affect normal, judgement normal, mood normal. [] Current Patient Data: Vital Signs: Vital Signs Date Time Temp Pulse Resp B/P (MAP) Pulse Ox O2 Delivery O2 Flow Rate FiO2 06/04/21 11:53 97.9 59 16 110/51 (70) 100 Room Air EKG: EKG: [] Radiology/Procedures: Radiology/Procedures: [] Impressions: PATIENT: KERRY RING BACCOUNT: [id number] : 1965 LOCATION: ER AGE: 55 SEX: F EXAM STATUS: REG ER ORD. PHYSICIAN: LUCIE EVANGELISTA MD REASON: RLQ pain, HX OF DIVERTICULITIS -GIVEN 75 ML OMNI 300 PROCEDURE: CT ABD PELV W/ IV CONTRST ONLY Exam: CT abdomen/pelvis with intravenous contrast Indication: Right lower quadrant pain, history diverticulitis Comparison: CT abdomen pelvis 11/01/2020 Technique: Helical CT imaging performed of the abdomen and pelvis after the intravenous administration of 75 mL Omnipaque 300 contrast. Sagittal and coronal reformats were obtained. One or more of the following individualized dose reduction techniques were utilized for this examination: 1. Automated exposure control 2. Adjustment of the mA and/or kV according to patient size 3. Use of iterative reconstruction technique. Findings: Lower chest: The lung bases are clear. The heart is normal in size. Liver: The liver is normal in size. No focal liver lesion. Gallbladder/Biliary Tree: Normal. Pancreas: Normal. Spleen: Normal. Adrenal Glands: Normal. Kidneys/Ureters/Bladder: Normal. No hydronephrosis. Ureters and bladder are normal. Reproductive Organs: Uterus is surgically absent. No adnexal mass. Stomach, small bowel, and colon: The stomach is normal. There is no small bowel obstruction. The appendix is normal. There is sigmoid diverticulosis. No acute diverticulitis. Vasculature: No aortic aneurysm. Lymph Nodes: No lymphadenopathy. Peritoneum and retroperitoneum: There is a small amount of free fluid in the pelvis. No free air. Bones: No acute osseous abnormality. There are surgical changes of anterior and interbody fusion at L4-S1. Miscellaneous: None. IMPRESSION: 1. No acute abnormality. 2. Mild sigmoid diverticulosis. No acute diverticulitis. 3. Small amount of free fluid in the pelvis, nonspecific. Electronically signed by: Liss Mckeon MD (06/04/2021 1:02 PM) [id number] DICTATED AND SIGNED BY: LISS MCKEON MD DATE: 06/04/21 1255 CC: PCP,UNKNOWN; LUCIE EVANGELISTA MD ~ Heart Score: C/O Chest Pain: No Risk Factors: Risk Factors: DM, Current or recent (<one month) smoker, HTN, HLP, family history of CAD, obesity. Risk Scores: Score 0 - 3: 2.5% MACE over next 6 weeks - Discharge Home Score 4 - 6: 20.3% MACE over next 6 weeks - Admit for Clinical Observation Score 7 - 10: 72.7% MACE over next 6 weeks - Early Invasive Strategies Course & Med Decision Making: Course & Med Decision Making Pertinent Labs and Imaging studies reviewed. (See chart for details) [] This is a 55-year-old female with abdominal pain. CT of the abdomen pelvis was negative for any acute process. Patient's lab work is unremarkable other than a urinalysis that has some bacteria in it but this is contaminated with epithelial cells. We will start the patient on Bactrim DS 1 tab twice a day for 3 days as I do not have a better explanation for her suprapubic discomfort. She should follow-up with her primary care physician if symptoms have not resolved by that time, return to the emergency department if the become worse or other concerns arise, she is stable for discharge at this time. Dragon Disclaimer: Dragon Disclaimer: This electronic medical record was generated, in whole or in part, using a voice recognition dictation system. Departure Departure: Impression: Primary Impression: Abdominal pain Additional Impression: UTI (urinary tract infection) Disposition: HOME / SELF CARE / HOMELESS Condition: STABLE Referrals: PCP,UNKNOWN (PCP) Patient Instructions: Abdominal Pain, Urinary Tract Infection Scripts Nitrofurantoin Monohyd/M-Cryst (MACROBID 100 MG CAPSULE) 100 Mg Capsule 1 CAP PO BID for uti for 7 Days, #14 CAP 0 Refills Prov: LUCIE EVANGELISTA MD 06/04/21 LUCIE EVANGELISTA MD Jun 04, 2021 12:32
[2021-06-04 12:44] LABS: BASO % 1 % (0-3); EOS # 0.1 x10^3/uL (0.0-0.7); EOS % 1 % (0-3); HEMATOCRIT 38.7 % (36.0-47.0); LYMPH # 1.5 x10^3/uL (1.0-4.8); LYMPH % 28 % (24-48); MEAN CORPUSCULAR HEMOGLOBIN 31 pg (25-35); MEAN CORPUSCULAR HGB CONC 34 g/dL (31-37); MEAN CORPUSCULAR VOLUME 91 fL (79-100); MONO # 0.3 x10^3/uL (0.0-1.1); MONO % 6 % (0-9); NEUT # 3.5 x10^3uL (1.8-7.7); NEUT % 64 % (31-73); PLATELET COUNT 217 x10^3/uL (140-400); RED BLOOD COUNT 4.27 x10^6/uL (3.50-5.40); RED CELL DISTRIBUTION WIDTH 12.6 % (11.5-14.5); WHITE BLOOD COUNT 5.5 x10^3/uL (4.0-11.0)
[2021-06-04 12:46] LABS: CALCIUM 8.9 mg/dL (8.5-10.1); CREATININE 0.8 mg/dL (0.6-1.0); GFR 74.7; POTASSIUM 3.8 mmol/L (3.5-5.1)
[2021-06-04 12:53] LABS: ALBUMIN 3.4 g/dL (3.4-5.0); ALBUMIN/GLOBULIN RATIO 1.1 (1.0-1.7); TOTAL BILIRUBIN 0.4 mg/dL (0.2-1.0); TOTAL PROTEIN 6.5 g/dL (6.4-8.2)
--- NOTE | 2021-06-04 13:05 | RAD ---
Exam: CT abdomen/pelvis with intravenous contrast Indication: Right lower quadrant pain, history diverticulitis Comparison: CT abdomen pelvis 11/01/2020 Technique: Helical CT imaging performed of the abdomen and pelvis after the intravenous administratio n of 75 mL Omnipaque 300 contrast. Sagittal and coronal reformats were obtained. One or more of the following individualized dose reduction techniques were utilized for this examinat ion: 1. Automated exposure control 2. Adjustment of the mA and/or kV according to patient size 3. Use of iterative reconstruction technique. Findings: Lower chest: The lung bases are clear. The heart is normal in size. Liver: The liver is normal in size. No focal liver lesion. Gallbladder/Biliary Tree: Normal. Pancreas: Normal. Spleen: Normal. Adrenal Glands: Normal. Kidneys/Ureters/Bladder: Normal. No hydronephrosis. Ureters and bladder are normal. Reproductive Organs: Uterus is surgically absent. No adnexal mass. Stomach, small bowel, and colon: The stomach is normal. There is no small bowel obstruction. The appe ndix is normal. There is sigmoid diverticulosis. No acute diverticulitis. Vasculature: No aortic aneurysm. Lymph Nodes: No lymphadenopathy. Peritoneum and retroperitoneum: There is a small amount of free fluid in the pelvis. No free air. Bones: No acute osseous abnormality. There are surgical changes of anterior and interbody fusion at L 4-S1. Miscellaneous: None. IMPRESSION: 1. No acute abnormality. 2. Mild sigmoid diverticulosis. No acute diverticulitis. 3. Small amount of free fluid in the pelvis, nonspecific. Electronically signed by: Liss Mckeon MD (06/04/2021 1:02 PM) [id number]
[2021-06-04 13:07] LABS: BACTERIA,URINE MOD /HPF (0-FEW); CLARITY,URINE CLOUDY; COLOR,URINE YELLOW; GLUCOSE,URINE NEG (NEG); NITRITE,URINE NEG (NEG); SQUAMOUS EPITHELIAL CELL,UR MANY /LPF; UROBILINOGEN,URINE 0.2 mg/dL (0.2 mg/dL)
[2021-06-04 13:26] VITALS: BP 105/50
[2021-06-04] MEDS ORDERED: NITR100C62 PO (13:30)
== END 2021-06-04 13:36 | disposition home or self-care (01) ==
LOC: ER 11:45
DX: N39.0 Urinary tract infection, site not specified (principal); K57.30 Diverticulosis of large intestine without perforation or abscess without bleeding; Z98.890 Other specified postprocedural states; Z90.710 Acquired absence of both cervix and uterus; Z88.2 Allergy status to sulfonamides; Z88.8 Allergy status to other drugs, medicaments and biological substances
CPT/HCPCS: 36415; 74177; 80053; 81001; 83690; 85025; 96361; 96374; 96375; 99285; J1885; J2405; J7030; Q9967